=== PATIENT | female | born 1940 | race Caucasian/White ===

== ENCOUNTER → 2016-10-07 09:30 | Outpatient (CLI) | payer MEDICARE, OTHER | END | disposition home or self-care (01) | LOC: D.CT 09:30 | DX: M06.9 Rheumatoid arthritis, unspecified (principal); J84.9 Interstitial pulmonary disease, unspecified ==

== ENCOUNTER → 2017-03-13 07:34 | Outpatient (CLI) | payer MEDICARE, OTHER | END | disposition home or self-care (01) | LOC: D.RT 02-08 08:00 → D.RAD 02-08 09:00 → D.RT 07:34 | DX: J84.9 Interstitial pulmonary disease, unspecified (principal) ==